=== PATIENT | male | born 1985 | race Caucasian/White ===

== ENCOUNTER 2024-03-06 22:15 | Emergency (ER) | payer OTHER, SELFPAY ==
[2024-03-06 22:20] VITALS: BP 143/86; PULSE 99; RESP 18; TEMP 37.1; O2SAT 97
--- NOTE | 2024-03-06 22:50 | ECG_ITS ---
[facility] Test Date: 2024-03-06 Pat Name: Regis Yang Department: Room: Gender: Male [employer]: : 1985 Requested By: Davis Marquez Order Number: [id number] Melina MD: Javon Hunt M.D. Measurements Intervals Metaline Rate: 60 P: 18 PA: 148 QRS: -14 QRSD: 93 T: 25 QT: 368 QTc: 369 Interpretive Statements SINUS RHYTHM POSSIBLE RIGHT VENTRICULAR CONDUCTION DELAY [RSR (QR) IN V1/V2] No previous ECG available for comparison Electronically Signed On 03-07-2024 12:31:10 CDT by Javon Hunt M.D. [id number] f
[2024-03-06 23:03] LABS: Basophils % 0.3 %; Eosinophils # 0.1 10^3/uL (0.0-0.8); Hematocrit 47.2 % (37-53); Lymphocytes # 1.2 10^3/uL (0.8-4.8); Mean Corpuscular HGB Conc 36.2 g/dL (30-55); Mean Corpuscular Hemoglobin 29.5 pg (27-33); Mean Corpuscular Volume 81.5 fl (82-101); Mean Platelet Volume 10.4 fL (7.4-10.4); Monocytes # 0.6 10^3/uL (0.2-0.9); Monocytes % 4.9 %; Neutrophils # 9.97 10^3/uL (1.8-7.7); Neutrophils % 83.5 %; Nucleated Red Blood Cells % 0 %; Platelet Count 239 10^3/cmm (157-399); Red Blood Count 5.79 10^6/uL (3.85-5.65); Red Cell Distribution Width 11.9 % (12.1-15.1); White Blood Count 11.93 10^3/uL (3.29-11.43)
[2024-03-06] MEDS: sodium chloride 0.9% 1,000 ML 999 ML IV (23:03)
[2024-03-06 23:04] VITALS: BP 127/72; PULSE 80; RESP 18; O2SAT 95
--- NOTE | 2024-03-06 23:13 | ED_ITS ---
Documented by User: MAR Goel 03/07/24 00:10 HPI - Animal Bite 2 General: Chief Complaint: Animal Bite Stated Complaint: insect bite to back and rash Time Seen by Provider: 03/06/24 22:24 Source: patient Mode of arrival: ambulatory Limitations: no limitations History of Present Illness: Patient is a 39-year-old male presenting to the emergency department planing of insect bite onset this morning. Patient notes he was working outside when he felt something sharp through his right posterior flank. He notes that it itched for a little while after, however he returned to his normal activities. A few hours later, he notes sudden onset of sweating and fatigue, and soon after noticed a diffuse rash. Later in the day he notes that his feet did swell up on him quite a bit, and he was given 50 mg of Benadryl prior to arrival. He notes that he is feeling better, however the rash is still there. He is unsure what bit him, though he thinks it is a brown recluse due to the age of his house and area and when she was working. He denies any fever, myalgias, arthralgias, urinary changes, or any other symptoms at this time. Associated symptoms: Reports diaphoresis; Deny chills, fever(s) or headache(s) Review of Systems 2 General: Reports: 10 or more systems reviewed and unremarkable except in HPI and below Const: Reports: fatigue, malaise and diaphoresis; Denies: fever(s) or chills Eyes: Denies: change in vision ENMT: Denies: throat pain, ear or mastoid pain or nasal discharge Card: Denies: chest pain, palpitations, swelling of feet/ankles or lightheadedness Resp: Denies: dyspnea, productive cough or wheezing GI: Denies: abdominal pain, nausea, vomiting, diarrhea or constipation : Denies: flank pain, difficulty urinating, dysuria or urinary frequency Musc: Reports: extremity swelling (Bilateral feet); Denies: neck pain, back pain or joint pain Skin/Breast: Reports: rash (Diffuse) and new lesions (Bug bite) Neuro: Denies: headache(s), numbness in extremities or weakness in extremities Physical Exam 2 Const: COMMON NORMALS: no acute distress, patient oriented x3 and no limitations GENERAL APPEARANCE: cooperative, comfortable and well developed ORIENTATION/CONSCIOUSNESS: Yes awake, Yes oriented to person, Yes oriented to place and Yes oriented to time HENMT: COMMON NORMALS: normocephalic, atraumatic and hearing grossly normal bilaterally HEAD & SCALP: normocephalic and atraumatic OTHER: No angioedema Eye: COMMON NORMALS: Equal, round and reactive pupils present, EOMs intact bilaterally and conjunctivae normal CONJUNCTIVA: Yes conjunctivae normal P UPIL: Yes Equal, round and reactive pupils present Neck/C-Spine: COMMON NORMALS: full ROM, supple and no JVD Resp: COMMON NORMALS: normal respiratory effort, No retractions, No use of accessory muscles and clear to auscultation bilaterally AUSCULTATION: clear to auscultation bilaterally Cardio: COMMON NORMALS: no JVD, regular rate, regular rhythm, No clicks present (Cardio), No murmurs present (Cardio) and No rub (Cardio) RATE: r egular rate RHYTHM: regular rhythm GI: COMMON NORMALS: Normal to inspection, nondistended, normoactive bowel sounds present, Soft to palpation and non-tender AUSCULTATION: Yes normoactive bowel sounds PALPATION: Yes Soft to palpation RECTAL EXAM: Yes deferred Back/Pelvis: COMMON NORMALS: thoracic and lumbar spine normal to inspection, no thoracic nor lumbar tenderness and thoraco-lumbar ROM normal Extremity: COMMON NORMALS: normal to inspection, full ROM and capillary refill normal Neuro: COMMON NORMALS: patient oriented x3, CN's II-XII intact bilaterally, moves all extremities, no focal motor deficits and no sensory deficits noted SENSORIUM/ORIENTATION: Yes oriented to person, Yes oriented to place and Yes oriented to time Psych: COMMON NORMALS: mental status grossly normal and Normal thought process present THOUGHT PROCESS: Normal thought process present Skin: NARRATIVE SKIN EXAM: Diffuse maculopapular rash noted to the face, back, neck, and bilateral lower extremities. Pinpoint lesion noted to the right posterior back, consistent with insect bite. Course 2 Vital Signs: Vital signs: Vital Signs Temperature 98.7 F 03/06/24 22:20 Pulse Rate 75 03/07/24 00:32 Respiratory Rate 18 03/07/24 00:32 Blood Pressure 119/72 03/07/24 00:32 Pulse Oximetry 97 03/07/24 00:32 Oxygen Delivery Me thod Room Air 03/07/24 00:01 [facility] - Animal Bite Medical Decision Making Patient seen and evaluated due to insect bite onset earlier this morning. Patient's arrival to the ED prompted by systemic symptoms such as diaphoresis and weakness, which patient notes that upon examination have already began to improve. Another concern of his was the rash that he developed, also improving. Vitals were unremarkable and have remained stable throughout his ED course. Initial examination did reveal a rash to his face, neck, back, and bilateral feet. Rest of examination unremarkable and there were no signs of anaphylaxis. Basic lab evaluation showed very minimal elevation in white count and CMP did show an elevated glucose. I asked the patient if he had a history of diabetes, to which she states he does not. I did inform him to follow-up with primary care to discuss these lab values further. Patient's creatinine kinase normal and rest of his lab examination unremarkable. Patient had been given 50 mg of Benadryl prior to arrival by spouse, and I we will give him a dose of Decadron through IV prior to discharge. It is unknown what bit him, however my suspicion is that this was a brown recluse bite that caused a systemic reaction. I did inform him that sometimes these wounds can become necrotic, and to return with any concerning signs. Upon reexamination he is also showing more improvement in his rash and states that he feels baseline. Informed him of return precautions, to which she agrees. All other questions and concerns addressed at this time and patient will be discharged home. Lab Data I reviewed the patient's lab results. 03/06/24 22:58 03/06/24 22:58 Laboratory Results WBC 11.93 10^3/uL (3.29-11.43) H 03/06/24 22:58 RBC 5.79 10^6/uL (3.85-5.65) H 03/06/24 22:58 Hgb 17.10 g/dL (11.27-16.99) H 03/06/24 22:58 Hct 47.2 % (37-53) 03/06/24 22:58 MCV 81.5 fl (82-101) L 03/06/24 22:58 MCH 29.5 pg (27-33) 03/06/24 22:58 MCHC 36.2 g/dL (30-55) 03/06/24 22:58 RDW 11.9 % (12.1-15.1) L 03/06/24 22:58 Plt Count 239 10^3/cmm (157-399) 03/06/24 22:58 MPV 10.4 fL (7.4-10.4) 03/06/24 22:58 Neut % (Auto) 83.5 % 03/06/24 22:58 Lymph % (Auto) 10.0 % 03/06/24 22:58 [place] % (Auto) 4.9 % 03/06/24 22:58 Eos % (Auto) 1.0 % 03/06/24 22:58 Baso % (Auto) 0.3 % 03/06/24 22:58 Neut # (Auto) 9.97 10^3/uL (1.8-7.7) H 03/06/24 22:58 Lymph # (Auto) 1.2 10^3/uL (0.8-4.8) 03/06/24 22:58 [place] # (Auto) 0.6 10^3/uL (0.2-0.9) 03/06/24 22:58 Eos # (Auto) 0.1 10^3/uL (0.0-0.8) 03/06/24 22:58 Baso # (Auto) 0.0 10^3/uL (0.0-0.1) 03/06/24 22:58 Nucleated RBC % (auto) 0 % 03/06/24 22:58 Nucleated RBCs # 0.0 /100WBC 03/06/24 22:58 PT 13.50 SECONDS (12.1-14.9) 03/06/24 22:58 INR 1.00 (0.8-1.2) 03/06/24 22:58 APTT 25.8 SECONDS (23.9-36.7) 03/06/24 22:58 Sodium 137 mmol/L (136-145) 03/06/24 22:58 Potassium 4.1 mmol/L (3.5-5.1) 03/06/24 22:58 Chloride 98 mmol/L (98-107) 03/06/24 22:58 Carbon Dioxide 26 mmol/L (22-29) 03/06/24 22:58 Anion Gap 17.1 (5-19) 03/06/24 22:58 BUN 19 mg/dL (6-20) 03/06/24 22:58 Creatinine 1.0 mg/dL (0.7-1.2) 03/06/24 22:58 GFR Calculation 83.2 mL/min (90-130) L 03/06/24 22:58 Glucose 249 mg/dL (65-115) H 03/06/24 22:58 Calculated Osmolality 295 mOsm/kg (285-295) 03/06/24 22:58 Calcium 9.9 mg/dL (8.5-10.5) 03/06/24 22:58 Total Bilirubin 0.6 mg/dL (0.15-1.2) 03/06/24 22:58 AST 19 U/L (0-40) 03/06/24 22:58 ALT 21 U/L (0-41) 03/06/24 22:58 Alkaline Phosphatase 106 U/L (40-130) 03/06/24 22:58 Creatine Kinase 131 U/L (39-308) 03/06/24 22:58 Total Protein 7.6 g/dL (6.6-8.7) 03/06/24 22:58 Albumin 4.6 g/dL (3.5-5.2) 03/06/24 22:58 Globulin 3.0 g/dL (1.3-4.6) 03/06/24 22:58 Urine Color Light yellow (Yellow) 03/06/24 23:03 Urine Appearance Clear (CLEAR) 03/06/24 23:03 Urine pH 6 (5-7) 03/06/24 23:03 Ur Specific [place] 1.015 (1.005-1.030) 03/06/24 23:03 Urine Protein Neg (Negative) 03/06/24 23:03 Urine Glucose (UA) Trace (Normal) H 03/06/24 23:03 Urine Ketones Negative (Negative) 03/06/24 23:03 Urine Blood Neg (Negative) 03/06/24 23:03 Urine Nitrate Negative (Negative) 03/06/24 23:03 Urine Bilirubin Neg (Negative) 03/06/24 23:03 Urine Urobilinogen Neg mg/dL (Negative) 03/06/24 23:03 Ur Leukocyte Esterase Negative (Negative) 03/06/24 23:03 No radiology studies performed this visit Discharge Plan Discharge Patient Disposition: Home Clinical Impression: Insect bite Qualifiers: Encounter type: initial encounter Site of insect bite: lower back Qualified Code(s): S30.860A - Insect bite (nonvenomous) of lower back and pelvis, initial encounter Condition: Stable Prescriptions: No Action amoxicillin 500 mg tablet 500 mg PO BID 10 Days Qty: 20 0RF Discharge Orders: Discharge ED (Routine); Ordered 03/06/24 Ordered By: Davis Dennis Discharge Diet: Usual diet Discharge Activity: Resume usual activity Patient Instructions: Brown Recluse Spider Bite (ED) Activity Restrictions/Additional Instructions: Benadryl as needed. Monitor for any new or concerning symptoms you may have. Otherwise, follow-up with primary care to discuss ED visit and any further evaluation. Coding Level of Care Code ED Public Address System Mechanic for Rebekah Russell Documented by User: Gabriel Silver DO 03/08/24 06:10 HPI - Animal Bite 2 General: Chief Complaint: Animal Bite Stated Complaint: insect bite to back and rash Time Seen by Provider: 03/06/24 22:24 Course 2 Vital Signs: Vital signs: Vital Signs Temperature 98.7 F 03/06/24 22:20 Pulse Rate 75 03/07/24 00:32 Respiratory Rate 18 03/07/24 00:32 Blood Pressure 119/72 03/07/24 00:32 Pulse Oximetry 97 03/07/24 00:32 Oxygen Delivery Me thod Room Air 03/07/24 00:01 MDM - Animal Bite Medical Decision Making Patient seen and evaluated due to insect bite onset earlier this morning. Patient's arrival to the ED prompted by systemic symptoms such as diaphoresis and weakness, which patient notes that upon examination have already began to improve. Another concern of his was the rash that he developed, also improving. Vitals were unremarkable and have remained stable throughout his ED course. Initial examination did reveal a rash to his face, neck, back, and bilateral feet. Rest of examination unremarkable and there were no signs of anaphylaxis. Basic lab evaluation showed very minimal elevation in white count and CMP did show an elevated glucose. I asked the patient if he had a history of diabetes, to which she states he does not. I did inform him to follow-up with primary care to discuss these lab values further. Patient's creatinine kinase normal and rest of his lab examination unremarkable. Patient had been given 50 mg of Benadryl prior to arrival by spouse, and I we will give him a dose of Decadron through IV prior to discharge. It is unknown what bit him, however my suspicion is that this was a brown recluse bite that caused a systemic reaction. I did inform him that sometimes these wounds can become necrotic, and to return with any concerning signs. Upon reexamination he is also showing more improvement in his rash and states that he feels baseline. Informed him of return precautions, to which she agrees. All other questions and concerns addressed at this time and patient will be discharged home. Chart reviewed Lab Data 03/06/24 22:58 03/06/24 22:58 Laboratory Results WBC 11.93 10^3/uL (3.29-11.43) H 03/06/24 22:58 RBC 5.79 10^6/uL (3.85-5.65) H 03/06/24 22:58 Hgb 17.10 g/dL (11.27-16.99) H 03/06/24 22:58 Hct 47.2 % (37-53) 03/06/24 22:58 MCV 81.5 fl (82-101) L 03/06/24 22:58 MCH 29.5 pg (27-33) 03/06/24 22:58 MCHC 36.2 g/dL (30-55) 03/06/24 22:58 RDW 11.9 % (12.1-15.1) L 03/06/24 22:58 Plt Count 239 10^3/cmm (157-399) 03/06/24 22:58 MPV 10.4 fL (7.4-10.4) 03/06/24 22:58 Neut % (Auto) 83.5 % 03/06/24 22:58 Lymph % (Auto) 10.0 % 03/06/24 22:58 [place] % (Auto) 4.9 % 03/06/24 22:58 Eos % (Auto) 1.0 % 03/06/24 22:58 Baso % (Auto) 0.3 % 03/06/24 22:58 Neut # (Auto) 9.97 10^3/uL (1.8-7.7) H 03/06/24 22:58 Lymph # (Auto) 1.2 10^3/uL (0.8-4.8) 03/06/24 22:58 [place] # (Auto) 0.6 10^3/uL (0.2-0.9) 03/06/24 22:58 Eos # (Auto) 0.1 10^3/uL (0.0-0.8) 03/06/24 22:58 Baso # (Auto) 0.0 10^3/uL (0.0-0.1) 03/06/24 22:58 Nucleated RBC % (auto) 0 % 03/06/24 22:58 Nucleated RBCs # 0.0 /100WBC 03/06/24 22:58 PT 13.50 SECONDS (12.1-14.9) 03/06/24 22:58 INR 1.00 (0.8-1.2) 03/06/24 22:58 APTT 25.8 SECONDS (23.9-36.7) 03/06/24 22:58 Sodium 137 mmol/L (136-145) 03/06/24 22:58 Potassium 4.1 mmol/L (3.5-5.1) 03/06/24 22:58 Chloride 98 mmol/L (98-107) 03/06/24 22:58 Carbon Dioxide 26 mmol/L (22-29) 03/06/24 22:58 Anion Gap 17.1 (5-19) 03/06/24 22:58 BUN 19 mg/dL (6-20) 03/06/24 22:58 Creatinine 1.0 mg/dL (0.7-1.2) 03/06/24 22:58 GFR Calculation 83.2 mL/min (90-130) L 03/06/24 22:58 Glucose 249 mg/dL (65-115) H 03/06/24 22:58 Calculated Osmolality 295 mOsm/kg (285-295) 03/06/24 22:58 Calcium 9.9 mg/dL (8.5-10.5) 03/06/24 22:58 Total Bilirubin 0.6 mg/dL (0.15-1.2) 03/06/24 22:58 AST 19 U/L (0-40) 03/06/24 22:58 ALT 21 U/L (0-41) 03/06/24 22:58 Alkaline Phosphatase 106 U/L (40-130) 03/06/24 22:58 Creatine Kinase 131 U/L (39-308) 03/06/24 22:58 Total Protein 7.6 g/dL (6.6-8.7) 03/06/24 22:58 Albumin 4.6 g/dL (3.5-5.2) 03/06/24 22:58 Globulin 3.0 g/dL (1.3-4.6) 03/06/24 22:58 Urine Color Light yellow (Yellow) 03/06/24 23:03 Urine Appearance Clear (CLEAR) 03/06/24 23:03 Urine pH 6 (5-7) 03/06/24 23:03 Ur Specific [place] 1.015 (1.005-1.030) 03/06/24 23:03 Urine Protein Neg (Negative) 03/06/24 23:03 Urine Glucose (UA) Trace (Normal) H 03/06/24 23:03 Urine Ketones Negative (Negative) 03/06/24 23:03 Urine Blood Neg (Negative) 03/06/24 23:03 Urine Nitrate Negative (Negative) 03/06/24 23:03 Urine Bilirubin Neg (Negative) 03/06/24 23:03 Urine Urobilinogen Neg mg/dL (Negative) 03/06/24 23:03 Ur Leukocyte Esterase Negative (Negative) 03/06/24 23:03 Discharge Plan Discharge Patient Disposition: Home Clinical Impression: Insect bite Qualifiers: Encounter type: initial encounter Site of insect bite: lower back Qualified Code(s): S30.860A - Insect bite (nonvenomous) of lower back and pelvis, initial encounter Condition: Stable Prescriptions: No Action amoxicillin 500 mg tablet 500 mg PO BID 10 Days Qty: 20 0RF Discharge Orders: Discharge ED (Routine); Ordered 03/06/24 Ordered By: Davis Dennis Discharge Diet: Usual diet Discharge Activity: Resume usual activity Patient Instructions: Brown Recluse Spider Bite (ED) Activity Restrictions/Additional Instructions: Benadryl as needed. Monitor for any new or concerning symptoms you may have. Otherwise, follow-up with primary care to discuss ED visit and any further evaluation. Coding Level of Care Code ED Public Address System Mechanic for Rebekah Russell
[2024-03-06 23:14] LABS: Add Urine Microscopic? NO; Charge for UA Resulting for Rev
[2024-03-06 23:16] LABS: Partial Thromboplastin Time 25.8 SECONDS (23.9-36.7)
[2024-03-06 23:18] LABS: Bilirubin Urine Neg (Negative); Blood Urine Neg (Negative); Glucose Urine UA Trace (Normal); Ketones Urine Negative (Negative); Leukocyte Esterase Urine Negative (Negative); Nitrate Urine Negative (Negative); Protein Urine Neg (Negative); Specific Gravity, Urine 1.015 (1.005-1.030); Urine Appearance Clear (CLEAR); Urine Color Light yellow (Yellow); Urobilinogen Urine Neg (Negative); pH Urine 6 (5-7)
[2024-03-06 23:26] LABS: Alanine Aminotransferase 21 U/L (0-41); Albumin Level 4.6 g/dL (3.5-5.2); Alkaline Phosphatase 106 U/L (40-130); Anion Gap 17.1 (5-19); Aspartate Amino Transferase 19 U/L (0-40); Blood Urea Nitrogen 19 mg/dL (6-20); Calcium 9.9 mg/dL (8.5-10.5); Carbon Dioxide 26 mmol/L (22-29); Chloride 98 mmol/L (98-107); Creatine Phosphokinase 131 U/L (39-308); Creatinine Clr Calc Pharmacy 112.3445; Glomerular Filtration Rate 83.2 mL/min (90-130); Glucose 249 mg/dL (65-115); Osmolality Calculated 295 mOsm/kg (285-295); Potassium 4.1 mmol/L (3.5-5.1); Sodium 137 mmol/L (136-145); Total Bilirubin 0.6 mg/dL (0.15-1.2); Total Protein 7.6 g/dL (6.6-8.7)
[2024-03-07 00:01] VITALS: BP 119/72; PULSE 75; RESP 18; O2SAT 97
[2024-03-07] MEDS: dexamethasone 10 mg/mL INJ 8 MG IM (00:02)
[2024-03-07 00:32] VITALS: BP 119/72; PULSE 75; RESP 18; O2SAT 97
== END 2024-03-07 00:14 | disposition home or self-care (01) ==
PROVIDERS: Emergency Provider Physician Assistant
DX: S30.860A Insect bite (nonvenomous) of lower back and pelvis, initial encounter (principal); W57.XXXA Bitten or stung by nonvenomous insect and other nonvenomous arthropods, initial encounter
CPT/HCPCS: 80053; 81003; 82550; 85025; 85610; 85730; 93005; 96360; 99284; J1100; J7030

== ENCOUNTER → 2024-06-12 10:30 | Outpatient (BNVA) | payer OTHER, SELFPAY | PROVIDERS: Visit Provider Family Medicine | DX: E11.9 Type 2 diabetes mellitus without complications (principal) | CPT/HCPCS: 80053; 80061; 84443; 84681; 85025; 86337; 86341 ==

== ENCOUNTER → 2024-08-29 14:02 | Outpatient (BNVA) | payer OTHER, SELFPAY | PROVIDERS: PCP Family Medicine; Visit Provider Family Medicine | DX: E11.9 Type 2 diabetes mellitus without complications (principal) | CPT/HCPCS: 83036 ==

== ENCOUNTER → 2025-03-01 15:00 | Outpatient (BNVA) | payer OTHER, SELFPAY | PROVIDERS: PCP Family Medicine; Visit Provider Family Medicine | DX: E11.9 Type 2 diabetes mellitus without complications (principal) | CPT/HCPCS: 80048; 83036 ==

== ENCOUNTER → 2025-08-27 08:30 | Outpatient (BNVA) | payer OTHER, SELFPAY | PROVIDERS: PCP Family Medicine; Visit Provider Family Medicine | DX: E11.9 Type 2 diabetes mellitus without complications (principal) | CPT/HCPCS: 80048; 80061; 83036 ==